=== PATIENT | female | born 1955 | race Asian ===

== ENCOUNTER 2022-10-27 07:40 | Day surgery (SDC) | payer OTHER ==
[2022-10-25 13:23] LABS: COVID AG,FIA SOURCE NASAL SWAB
[~2022-10-27] VITALS: Ht 157.5 cm; Wt 58.2 kg
[~2022-10-27 07:40] MED LIST: AMLO-258 PO; ATOR40TA28 PO; OLME20TA22 PO; OMEP20 PO; PRED5DRO17 OD; SODIUM CHLORIDE 0.9% 1,000 ML IV ONE
[2022-10-27] MEDS ORDERED: PROPOFOL 1% 20 ML VIAL IVP ONE (07:41)
== END 2022-10-27 11:10 | disposition home or self-care (01) ==
LOC: SURGERY 07:40
PROVIDERS: ATTEND Internal Medicine Gastroenterology
DX: Z12.11 Encounter for screening for malignant neoplasm of colon (principal); K64.1 Second degree hemorrhoids; Z20.822 Contact with and (suspected) exposure to COVID-19; I10 Essential (primary) hypertension; Z79.899 Other long term (current) drug therapy; Z98.890 Other specified postprocedural states
CPT/HCPCS: 87426; 45378; C9803; J2704